=== PATIENT | male | born 1995 | race Two or more races ===

== ENCOUNTER 2021-12-02 10:52 | Emergency (ER) | payer OTHER ==
[~2021-12-02] VITALS: Ht 177.8 cm; Wt 89.4 kg
[2021-12-02] MEDS ORDERED: AMOX-CLAV 875-1 EAC1 PO (15:26)
[2021-12-02] MEDS ORDERED: INTESTINEX680 M1 PO (15:26)
[2021-12-02] MEDS ORDERED: DICLOFENAC POTA50 MG PO (15:26)
== END 2021-12-02 16:53 | disposition left against medical advice (07) ==
LOC: ER 10:52
DX: S61.355A Open bite of left ring finger with damage to nail, initial encounter (principal); S61.251A Open bite of left index finger without damage to nail, initial encounter; S20.372A Other superficial bite of left front wall of thorax, initial encounter; S50.872A Other superficial bite of left forearm, initial encounter; Y04.1XXA Assault by human bite, initial encounter; Y93.9 Activity, unspecified; Y92.9 Unspecified place or not applicable; Y99.9 Unspecified external cause status

== ENCOUNTER 2021-12-23 09:32 | Emergency (ER) | payer OTHER ==
[~2021-12-23] VITALS: Ht 177.8 cm; Wt 86.2 kg
[~2021-12-23 09:32] MED LIST: AMOX-CLAV 875-1 EAC1 PO; DICLOFENAC POTA50 MG PO; INTESTINEX680 M1 PO
== END 2021-12-23 11:48 | disposition home or self-care (01) ==
LOC: ER 09:32
DX: S89.90XA Unspecified injury of unspecified lower leg, initial encounter (principal); X58.XXXA Exposure to other specified factors, initial encounter; Y93.9 Activity, unspecified; Y92.9 Unspecified place or not applicable; Y99.9 Unspecified external cause status